=== PATIENT | female | born 1965 | race Caucasian/White ===

== ENCOUNTER 2017-04-15 18:15 | Emergency (ER) | payer BC ==
--- NOTE | 2017-04-15 18:59 | UC ---
Dizzy HPI HPI Summary: complaint of intermittent dizziness currently has fleas in the house sprayed her bedroom with flea spray on thursday -left the room for 3 hours-slept in the sheets at night when she woke up thursday morning felt dizzy when she sat up, layed down for a while yesterday felt slightly dizzy and intermittent headache relieved by ibuprofen today was fine until 1PM then when she moved her head dizziness started again denies N/V/D, chest pain, shortness of breath, diaphoreisis,no headache at this time - History Of Current Complaint Chief Complaint: UCDizziness Stated Complaint: dizziness Time Seen by Provider: 04/15/17 18:58 Hx Obtained From: Patient Hx Last Menstrual Period: oct 31 - Allergies/Home Medications Allergies/Adverse Reactions: Allergies Allergy/AdvReac Type Severity Reaction Status Date / Time Bee Venom Allergy Hives Verified 04/15/17 18:38 PMH/Surg Hx/FS Hx/Imm Hx Previously Healthy: Yes Psychological History: Depression - Surgical History Surgical History: Yes Surgery Procedure, Year, and Place: LAPROSCOPIC SURGERY ENDOMETRIOSIS 1993 - Family History Known Family History: Negative: Cardiac Disease, Hypertension, Diabetes - Social History Occupation: Employed Full-time Lives: With Family Alcohol Use: Occasionally Substance Use Type: None Smoking Status (MU): Never Smoked Tobacco Review of Systems Constitutional: Fatigue Skin: Negative Eyes: Negative ENT: Negative Respiratory: Negative Cardiovascular: Negative Gastrointestinal: Negative Genitourinary: Negative Motor: Negative Neurovascular: Negative Musculoskeletal: Negative Neurological: Headache All Other Systems Reviewed And Are Negative: Yes Physical Exam Triage Information Reviewed: Yes Appearance: No Pain Distress, Well-Nourished Vital Signs: Initial Vital Signs Temp 97.8 F 04/15/17 18:18 Pulse 64 04/15/17 18:18 Resp 18 04/15/17 18:18 BP 154/81 04/15/17 18:18 Pulse Ox 100 04/15/17 18:18 Vital Signs Reviewed: Yes Eyes: Positive: Conjunctiva Clear ENT: Positive: Pharynx normal, TMs normal Neck: Positive: Supple, No Lymphadenopathy Respiratory: Positive: Lungs clear, Normal breath sounds, No respiratory distress, No accessory muscle use Cardiovascular: Positive: RRR, No Murmur, Pulses Normal, Brisk Capillary Refill Abdomen Description: Positive: Nontender, Soft Bowel Sounds: Positive: Present Musculoskeletal: Positive: No Edema Neurological: Positive: Alert, Other: - CN [id number] normal , negative Romberg Psychological Exam: Normal Skin Exam: Normal Re-Evaluation - Re-Evaluation First Eval Change: Improved - less dizziness following meclizine Dizzy Course/Dx - Course Course Of Treatment: exam completed. no neuro defecits. posion control contacted- no indication for ingredients to be causing dizziness in patient. will give meclizine and followup with PCP - Differential Dx/Diagnosis Differential Diagnosis/HQI/PQRI: Benign Paroxysmal Positional Vertigo, Labyrinthitis, Meniere's Disease Provider Diagnoses: dizziness - Physician Notifications Discussed Patient Care With: Tray Keith Time Discussed With Above Provider: 19:35 Discharge - Discharge Plan Condition: Stable Disposition: HOME Prescriptions: Meclizine TAB* [Antivert 12.5 TAB*] 12.5 mg PO TID #6 tab Patient Education Materials: Vertigo (ED), Dizziness (ED) Referrals: Carol Junior NP [Primary Care Provider] - Additional Instructions: Please start medication as directed Increase fluids and rest Take acetaminophen or ibuprofen for fever or pain Please review your discharge instructions. If your symptoms do not improve please call your primary care provider or return to urgent care. If your symptoms worsen tonight please proceed to the emergency department for further evaluation
[2017-04-15] MEDS ORDERED: Meclizine TAB* 12.5 MG PO ONE (19:30)
[2017-04-15 20:25] VITALS: BP 169/81
== END 2017-04-15 20:06 | disposition home or self-care (01) ==
LOC: UCEAST 18:15
DX: R42 Dizziness and giddiness (principal); F32.9 Major depressive disorder, single episode, unspecified; Z91.030 Bee allergy status
CPT/HCPCS: 93005; 99212; A9270-GY; G0463

== ENCOUNTER → 2017-04-16 07:52 | Emergency (ER) | payer BC ==
[~2017-04-16 07:52] MED LIST: Diazepam SYRINGE* 5 MG/ML SYRINGE IV ONE; Diazepam TAB(*) 5 MG PO ONE; Ketorolac INJ* 30 MG/ML 1 ML VIAL IV PUSH ONE; Meclizine TAB* 12.5 MG PO ONE; NS 0.9% 1000 ML* 1,000 ML IV ONE
--- NOTE | 2017-04-16 08:33 | RAD ---
HISTORY: Dizziness COMPARISONS: None VIEWS:1: Single frontal portable view of the chest at 8:18 AM FINDINGS: LINES AND TUBES: None. CARDIOMEDIASTINAL SILHOUETTE: The cardiomediastinal silhouette is normal for portable technique. PLEURA: The costophrenic angles are sharp. No pleural abnormalities are noted. LUNG PARENCHYMA: The lungs are clear. ABDOMEN: The upper abdomen is clear. There is no subphrenic gas. BONES AND SOFT TISSUES: No bone or soft tissue abnormalities are noted. IMPRESSION: NO ACTIVE CARDIOPULMONARY DISEASE.
--- NOTE | 2017-04-16 08:51 | RAD ---
HISTORY: Dizziness COMPARISONS: None TECHNIQUE: Multiple contiguous axial CT scans were obtained of the head without intravenous contrast. FINDINGS: HEMORRHAGE/INFARCT: There is no hemorrhage or acute infarct. MASSES/SHIFT: There is no mass or shift. EXTRA-AXIAL SPACES: There are no extra-axial fluid collections. SULCI AND VENTRICLES: The sulci and ventricles are normal in size and position for the patient's stated age. CEREBRUM: There are no focal parenchymal abnormalities. BRAINSTEM: There are no focal parenchymal abnormalities. CEREBELLUM: There are no focal parenchymal abnormalities. VESSELS: The vessels are grossly normal. PARANASAL SINUSES: The paranasal sinuses are clear. ORBITS: The orbits are unremarkable. BONES AND SOFT TISSUE: No bone or soft tissue abnormalities are noted. OTHER: None IMPRESSION: NO ACUTE INTRACRANIAL PATHOLOGY.
[2017-04-16 09:03] LABS: Urine Bilirubin Negative (Negative); Urine Glucose Negative (Negative); Urine Nitrite Negative (Negative)
[2017-04-16 09:20] LABS: Benzodiazepine Urine Screen None Detected (None Detect)
[2017-04-16 09:23] LABS: Hematocrit 48 % (35-47); Hemoglobin 16.3 g/dl (12.0-16.0); Mean Corpuscular HGB Conc 34 g/dl (31-36); Mean Corpuscular Hemoglobin 29 pg (27-31); Mean Corpuscular Volume 87 fL (80-97); Mean Platelet Volume 8 um3 (7.4-10.4); Red Blood Count 5.53 10^6/ul (4.0-5.4); Red Cell Distribution Width 13 % (10.5-15)
[2017-04-16 09:36] LABS: ALT 14 U/L (7-52); AST 15 U/L (13-39); Albumin 4.3 g/dL (3.2-5.2); Alkaline Phosphatase 65 U/L (34-104); Anion Gap 6 mmol/L (2-11); BUN/Creatinine Ratio 12.4 (8-20); Blood Urea Nitrogen 11 mg/dL (6-24); CO2 Carbon Dioxide 31 mmol/L (22-32); Calcium 9.8 mg/dL (8.6-10.3); Chloride 102 mmol/L (101-111); Creatine Kinase 64 U/L (10-223); EGFR Non-African American 66.9 (>60); Glucose 74 mg/dL (70-100); Potassium 3.7 mmol/L (3.5-5.0); Sodium 139 mmol/L (133-145); Total Protein 7.3 g/dL (6.4-8.9)
[2017-04-16 09:53] LABS: Alcohol < 10 mg/dL (<10)
[2017-04-16 10:04] LABS: TSH (Thyroid Stimulating Horm) 0.74 mcIU/mL (0.34-5.60)
[2017-04-16 15:27] VITALS: BP 105/78
--- NOTE | 2017-04-16 18:53 | ED ---
Tiffany Whitley Thomas, scribed for Aubrey Montes De Oca MD on 04/16/17 at 0831 . Dizziness - HPI Summary HPI Summary: The pt is a 52 y/o F presenting to the ED c/o dizziness characterized as room- spinning that began three days ago. The dizziness is aggravated when she moves her head. The dizziness is alleviated by nothing. The patient was given Meclizine at urgent care yesterday for the dizziness which did not relieve symptoms. Pt additionally c/o unsteadiness on her feet, CARBAJAL (today and yesterday) , and blurred vision. Pt denies N/V, CP, SOB, palpitations, and any pains at this time. PMHx: previously healthy. PSHx: laparoscopic endometriosis surgery. SHx: occasional alcohol, no illicit drugs, no smoking. She denies having episodes of this dizziness in the past. She denies drinking alcohol recently. The patient has not had a URI in the last few weeks. - History Of Current Complaint Chief Complaint: EDDizziness Stated Complaint: DIZZY Time Seen by Provider: 04/16/17 08:00 Hx Obtained From: Patient Onset/Duration: Still Present - onset 3 days ago Timing: Constant Severity Initially: Moderate Character: Room Spinning Aggravating Factor(s): Position Change - of her head Alleviating Factor(s): Nothing Associated Signs And Symptoms: Positive: Other: - POS: CARBAJAL (today and yesterday) , blurred vision. Negative: Nausea, Vomiting, Chest Pain, SOB, Palpitations, Fever - Allergies/Home Medications Allergies/Adverse Reactions: Allergies Allergy/AdvReac Type Severity Reaction Status Date / Time Bee Venom Allergy Hives Verified 04/15/17 18:38 Home Medications: Home Medications Sertraline* [Zoloft*] 50 mg PO DAILY 04/16/17 [History Confirmed 04/16/17] PMH/Surg Hx/FS Hx/Imm Hx Previously Healthy: Yes Endocrine/Hematology History: Denies: Hx Diabetes, Hx Thyroid Disease Cardiovascular History: Denies: Hx Hypertension, Hx Pacemaker/ICD Respiratory History: Denies: Hx Asthma, Hx Chronic Obstructive Pulmonary Disease (COPD) GI History: Denies: Hx Ulcer History: Denies: Hx Renal Disease Sensory History: Denies: Hx Hearing Aid Psychiatric History: Denies: Hx Panic Disorder - Cancer History Hx Chemotherapy: No Hx Radiation Therapy: No - Surgical History Surgery Procedure, Year, and Place: LAPROSCOPIC SURGERY ENDOMETRIOSIS 1993 Infectious Disease History: Denies: Hx Clostridium Difficile, Hx Hepatitis, Hx Human Immunodeficiency Virus (HIV), Hx of Known/Suspected MRSA, Hx Shingles, Hx Tuberculosis, Hx Known/ Suspected VRE, Hx Known/Suspected VRSA, History Other Infectious Disease, Traveled Outside the [place] in Last 30 Days - Family History Known Family History: Negative: Cardiac Disease, Hypertension, Diabetes - Social History Alcohol Use: Occasionally Substance Use Type: Reports: None Smoking Status (MU): Never Smoked Tobacco Review of Systems Negative: Fever Negative: Palpitations, Chest Pain Negative: Shortness Of Breath Negative: Vomiting, Nausea Neurological: Other - POS: dizziness (room spinning, onset 3 days ago, aggravated by moving her head) All Other Systems Reviewed And Are Negative: Yes Physical Exam - Summary Physical Exam Summary: VITAL SIGNS: Reviewed. GENERAL: ~Patient is a well-developed and nourished female who is lying comfortable in the stretcher. ~Patient is not in any acute respiratory distress. HEAD AND FACE: No signs of trauma. ~No ecchymosis, hematomas or skull depressions. No sinus tenderness. EYES: PERRLA, EOMI x 2, No injected conjunctiva, no nystagmus. EARS: Hearing grossly intact. Ear canals and tympanic membranes are within normal limits. MOUTH: Oropharynx within normal limits. NECK: Supple, trachea is midline, no adenopathy, no JVD, no carotid bruit, no c- spine tenderness, neck with full ROM. CHEST: Symmetric, no tenderness at palpation LUNGS: Clear to auscultation bilaterally. No wheezing or crackles. CVS: Regular rate and rhythm, S1 and S2 present, no murmurs or gallops appreciated. ABDOMEN: Soft, non-tender. No signs of distention. No rebound no guarding, and no masses palpated. Bowel sounds are normal. EXTREMITIES: FROM in all major joints, no edema, no cyanosis or clubbing. NEURO: Alert and oriented x 3. No acute neurological deficits. Speech is normal and follows commands. SKIN: Dry and warm Triage Information Reviewed: Yes Vital Signs On Initial Exam: Initial Vitals Temp Pulse Resp BP Pulse Ox 97 F 68 17 151/96 100 04/16/17 07:54 04/16/17 07:54 04/16/17 07:54 04/16/17 07:54 04/16/17 07:54 Vital Signs Reviewed: Yes Diagnostics - Vital Signs Vital Signs Temp Pulse Resp BP Pulse Ox 04/16/17 07:54 97 F 68 17 151/96 100 - Laboratory Lab Results: Lab Results 04/16/17 04/16/17 04/16/17 Range/Units 08:48 08:48 09:00 WBC 5.0 (3.5-10.8) 10^3/ul RBC 5.53 H (4.0-5.4) 10^6/ul Hgb 16.3 H (12.0-16.0) g/dl Hct 48 H (35-47) % MCV 87 (80-97) fL MCH 29 (27-31) pg MCHC 34 (31-36) g/dl RDW 13 (10.5-15) % Plt Count 221 (150-450) 10^3/ul MPV 8 (7.4-10.4) um3 Neut % (Auto) 62.1 (38-83) % Lymph % (Auto) 26.3 (25-47) % Hernando % (Auto) 8.4 (1-9) % Eos % (Auto) 2.2 (0-6) % Baso % (Auto) 1.0 (0-2) % Absolute Neuts (auto) 3.1 (1.5-7.7) 10^3/ul Absolute Lymphs (auto) 1.3 (1.0-4.8) 10^3/ul Absolute Monos (auto) 0.4 (0-0.8) 10^3/ul Absolute Eos (auto) 0.1 (0-0.6) 10^3/ul Absolute Basos (auto) 0 (0-0.2) 10^3/ul Absolute Nucleated RBC 0.01 10^3/ul Nucleated RBC % 0.1 Sodium (133-145) mmol/L Potassium (3.5-5.0) mmol/L Chloride (101-111) mmol/L Carbon Dioxide (22-32) mmol/L Anion Gap (2-11) mmol/L BUN (6-24) mg/dL Creatinine (0.51-0.95) mg/dL Est GFR ( Amer) (>60) Est GFR (Non-Af Amer) (>60) BUN/Creatinine Ratio (8-20) Glucose (70-100) mg/dL Lactic Acid (0.5-2.0) mmol/L Calcium (8.6-10.3) mg/dL Magnesium (1.9-2.7) mg/dL Total Bilirubin (0.2-1.0) mg/dL AST (13-39) U/L ALT (7-52) U/L Alkaline Phosphatase (34-104) U/L Total Creatine Kinase (10-223) U/L Troponin I (<0.04) ng/mL Total Protein (6.4-8.9) g/dL Albumin (3.2-5.2) g/dL Globulin (2-4) g/dL Albumin/Globulin Ratio (1-3) TSH (0.34-5.60) mcIU/mL Urine Color Straw Urine Appearance Clear Urine pH 6.0 (5-9) Ur Specific [place] 1.003 L (1.010-1.030) Urine Protein Negative (Negative) Urine Ketones Negative (Negative) Urine Blood Negative (Negative) Urine Nitrate Negative (Negative) Urine Bilirubin Negative (Negative) Urine Urobilinogen Negative (Negative) Ur Leukocyte Esterase Negative (Negative) Urine Glucose Negative (Negative) Urine Opiates Screen None detected (None Detect) Ur Barbiturates Screen None detected (None Detect) Ur Phencyclidine Scrn None detected (None Detect) Ur Amphetamines Screen None detected (None Detect) U Benzodiazepines Scrn None detected (None Detect) Urine Cocaine Screen None detected (None Detect) U Cannabinoids Screen None detected (None Detect) Serum Alcohol (<10) mg/dL 04/16/17 04/16/17 Range/Units 09:00 09:00 WBC (3.5-10.8) 10^3/ul RBC (4.0-5.4) 10^6/ul Hgb (12.0-16.0) g/dl Hct (35-47) % MCV (80-97) fL MCH (27-31) pg MCHC (31-36) g/dl RDW (10.5-15) % Plt Count (150-450) 10^3/ul MPV (7.4-10.4) um3 Neut % (Auto) (38-83) % Lymph % (Auto) (25-47) % Hernando % (Auto) (1-9) % Eos % (Auto) (0-6) % Baso % (Auto) (0-2) % Absolute Neuts (auto) (1.5-7.7) 10^3/ul Absolute Lymphs (auto) (1.0-4.8) 10^3/ul Absolute Monos (auto) (0-0.8) 10^3/ul Absolute Eos (auto) (0-0.6) 10^3/ul Absolute Basos (auto) (0-0.2) 10^3/ul Absolute Nucleated RBC 10^3/ul Nucleated RBC % Sodium 139 (133-145) mmol/L Potassium 3.7 (3.5-5.0) mmol/L Chloride 102 (101-111) mmol/L Carbon Dioxide 31 (22-32) mmol/L Anion Gap 6 (2-11) mmol/L BUN 11 (6-24) mg/dL Creatinine 0.89 (0.51-0.95) mg/dL Est GFR ( Amer) 86.0 (>60) Est GFR (Non-Af Amer) 66.9 (>60) BUN/Creatinine Ratio 12.4 (8-20) Glucose 74 (70-100) mg/dL Lactic Acid 1.1 (0.5-2.0) mmol/L Calcium 9.8 (8.6-10.3) mg/dL Magnesium 2.0 (1.9-2.7) mg/dL Total Bilirubin 0.60 (0.2-1.0) mg/dL AST 15 (13-39) U/L ALT 14 (7-52) U/L Alkaline Phosphatase 65 (34-104) U/L Total Creatine Kinase 64 (10-223) U/L Troponin I 0.00 (<0.04) ng/mL Total Protein 7.3 (6.4-8.9) g/dL Albumin 4.3 (3.2-5.2) g/dL Globulin 3.0 (2-4) g/dL Albumin/Globulin Ratio 1.4 (1-3) TSH 0.74 (0.34-5.60) mcIU/mL Urine Color Urine Appearance Urine pH (5-9) Ur Specific [place] (1.010-1.030) Urine Protein (Negative) Urine Ketones (Negative) Urine Blood (Negative) Urine Nitrate (Negative) Urine Bilirubin (Negative) Urine Urobilinogen (Negative) Ur Leukocyte Esterase (Negative) Urine Glucose (Negative) Urine Opiates Screen (None Detect) Ur Barbiturates Screen (None Detect) Ur Phencyclidine Scrn (None Detect) Ur Amphetamines Screen (None Detect) U Benzodiazepines Scrn (None Detect) Urine Cocaine Screen (None Detect) U Cannabinoids Screen (None Detect) Serum Alcohol < 10 (<10) mg/dL Result Diagrams: 04/16/17 09:00 04/16/17 09:00 Lab Statement: Any lab studies that have been ordered have been reviewed, and results considered in the medical decision making process. - Radiology CXR Xray Interpretation: No Acute Changes - no active cardiopulmonary disease Radiology Interpretation Completed By: Radiologist - CT CT Brain CT Interpretation: No Acute Changes CT Interpretation Completed By: Radiologist - EKG 08:20 Cardiac Rate: NL - 68 BPM EKG Interpretation: Sinus rhythm with no ST elevations Dizzy Course/Dx - Course Assessment/Plan: The pt is a 52 y/o F presenting to the ED c/o dizziness characterized as room-spinning that began three days ago. The dizziness is aggravated when she moves her head. The dizziness is alleviated by nothing. The patient was given Meclizine at urgent care yesterday for the dizziness which did not relieve symptoms. Pt additionally c/o unsteadiness on her feet, CARBAJAL ( today and yesterday), and blurred vision. Pt denies N/V, CP, SOB, palpitations, and any pains at this time. PMHx: previously healthy. PSHx: laparoscopic endometriosis surgery. SHx: occasional alcohol, no illicit drugs, no smoking. She denies having episodes of this dizziness in the past. She denies drinking alcohol recently. The patient has not had a URI in the last few weeks. After the patient was accepted for admission to Dr. Bautista, Dr. Bautista reported that he did a couple apply maneuvers to relief of symptoms. Dr. Bautista reports that the patient can be discharged home with follow up by her PCP. The patient is agreeable for discharge. At this point I discussed all the findings and test results with the patient and patients parents. They were instructed to return to the emergency room immediately if any of the symptoms return or worsens. They understand and agree. Neurological exam before discharge: Patient is alert and oriented x 3. No acute neurological deficits. Patient vital signs are stable. Patient is to follow up with the list of first job ideas in the next 2 3 days. They understand and agree. Plan of care was discussed with the patient and patient understands and agrees with the plan of care. All questions were answered at patient satisfaction. There were no further complaints or concerns. - Diagnoses Differential Diagnosis/HQI/PQRI: Benign Paroxysmal Positional Vertigo, CVA, Labyrinthitis, Meniere's Disease, Transient Ischemic Attack Provider Diagnoses: Benign positional vertigo - Provider Notifications Discussed Care Of Patient With: Chris Bautista Time Discussed With Above Provider: 12:46 Instructed by Provider To: Other - He initially agreed to accept the patient for admission, but after performing the Apply maneuver, we will discharge the patient. Discharge - Discharge Plan Condition: Stable Disposition: HOME Patient Education Materials: Benign Paroxysmal Positional Vertigo (ED) Referrals: Carol Junior NP [Primary Care Provider] - 3 Days The documentation as recorded by the Tiffany prieto Thomas accurately reflects the service I personally performed and the decisions made by Tavon ramon Walter, MD.
--- NOTE | 2017-04-16 20:27 | CONS ---
CC: Carol Junior NP * CONSULTATION REPORT: DATE OF CONSULT: 04/16/17 - EMERGENCY DEPT PRIMARY CARE PROVIDER: Carol Junior NP. HEALTHCARE PROXY: . CODE STATUS: Full. SERVICE REQUESTING CONSULTATION: Emergency Room, Dr. Montes De Oca. REASON FOR CONSULTATION: Vertigo. SOURCE OF INFORMATION: History obtained from interview with the patient and her , [place] [facility] [place] discussion with Dr. Montes De Oca. RELIABILITY: Very good. HISTORY OF PRESENT ILLNESS: This is a 52-year-old woman generally very healthy , past medical history of hyperlipidemia and depression, but in usual state of health on Thursday 5 days prior to presentation; however, on Thursday 4 days prior to presentation, sprayed her bedroom with flea spray. They slept outside of the room; however, forgot to change the sheets and slept on the sheets on the day prior. Three days prior to presentation, woke up feeling dizzy, described as spinning "like drinking too much." She noted her gait was steady, was not falling to one side or the other. She got up and throughout the day she made the coffee and drank it because she was having some headache as well as cleaned the room, did some laundry to care for kids. For her headache, she took Motrin and noted that the dizziness described as spinning lasted all day that came and went. She noted that it was worse when she lied down and turned her head to the right; however, was okay when looking ti the left. She lives with her 2 children. There has been no recent illnesses in home including no sore throat, cough, runny nose, rhinorrhea. No ringing in her ears or difficulty hearing. She has noted the headache has persisted today, bilateral throbbing with no associated nausea, vomiting, photo or phono sensitivity. She has had headaches more often recently in the setting of her premenopausal state , usually relieved with caffeine and Motrin. She has never been diagnosed with migraines in the past. The patient proceeded to urgent care the day prior to [place] [facility] [place] of these [place]iginous symptoms, was given meclizine with improvement in her vertiginous symptoms at home. She [place] [facility] [place] because of continuation of symptoms. PAST MEDICAL HISTORY: Depression and hyperlipidemia. MEDICATIONS: 1. Zoloft 50 mg daily. 2. Calcium. 3. Motrin p.r.n. 4. Multivitamin daily. ALLERGIES: No known drug allergies. FAMILY HISTORY: Mother with hypertension. Father with hyperlipidemia. Normal family history. SOCIAL HISTORY: No tobacco. Drinks 1 or 2 drinks per day. No illicits. 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 REVIEW OF SYSTEMS: As per HPI including dizziness, headache, otherwise all other systems negative. PHYSICAL EXAM: Vitals: In the emergency room, blood pressure 123/73, heart rate is between 57 and 74, 99% on room air, T-max 98.1. General: This patient is interactive, pleasant, in no apparent distress. HEENT: Oropharynx is clear. She has moist mucous membranes. Sclerae anicteric. Neck: She has non- elevated JVD. No cervical or supraclavicular lymphadenopathy. Heart: She has a regular rate and rhythm. Lungs: Clear to auscultation. Abdomen: Soft, nontender, and nondistended. Extremities: Warm and well perfused without clubbing, cyanosis, or edema. Neurologic: She is alert and oriented x3. Her cranial nerves II through XII are intact. She has 5/5 strength throughout. Sensation to light touch is intact throughout. Negative Romberg. No drift. [id number] is intact. Laura-Hallpike elicited dizziness bilateral sides and did not elicit nystagmus. DIAGNOSTIC STUDIES/LAB DATA: Brain CT, no acute intracranial pathology. Chest x- ray, no acute cardiopulmonary disease. EKG, normal sinus rhythm, ventricular rate of 68, normal limit axis and interval. Good R-wave progression. No ST or T-wave changes. ASSESSMENT AND PLAN: This is a 52-year-old female with past medical history of depression, untreated hyperlipidemia, presenting to the hospital with intermittent vertigo, worse with lying down, looking to the right, consistent with benign paroxysmal positional vertigo. Doubt cerebrovascular accident, transient ischemic attack, Meniere's, or labyrinthitis and absence of nausea and vomiting. No other neurological symptoms. Benign paroxysmal positional vertigo, most likely diagnosis upon Jovanny maneuver , targeting posterior otolith on the right; however, was unsuccessful on 2 attempts. Note that it was difficult to perform the maneuver in the emergency room on the stretcher, limiting ability to lie back and turn. I did discuss the modified Jovanny with the patient and her as well as the Amezcua- Daroff exercises. They feel comfortable returning home and continuing the modified Jovanny as well as the Amezcua- Daroff exercises for treatment. Encourage continued meclizine. They discussed the possibility of vertiginous migraine in the setting of headaches and treatment of the migraine with Tylenol , Motrin as well as caffeine. I discussed extensive return to the emergency room instructions including persistent or worsening symptoms in addition of nausea and vomiting, changes in hearing or vision, any weakness, paresthesias, loss of consciousness, slurred speech for which the patient would return to hospital immediately. The patient and are in agreement. I discussed findings with Dr. Montes De Oca. TIME SPENT: Greater than 60 minutes were spent on the consultation of this patient, of which greater than half was spent [id number] with the patient. [id number]/[facility] #: [id number] SHELLI
== END | disposition home or self-care (01) ==
LOC: ED 07:52
DX: H81.10 Benign paroxysmal vertigo, unspecified ear (principal)
CPT/HCPCS: 36415; 70450; 71010; 80053; 80307; 80320; 81003; 82550; 83605; 83735; 84443; 84484; 85025; 93005; 96374; 99284; A9270-GY; G0480; J1885; J3360

== ENCOUNTER 2017-10-11 09:42 | Emergency (ER) | payer BC ==
[2017-10-11 12:16] VITALS: BP 108/62
--- NOTE | 2017-10-11 12:20 | UC ---
Respiratory Complaint HPI - HPI Summary HPI Summary: 52 yo female with fever/chills/myalgias/runny nose x 1 1/2 days son with flu no n/v/d - History of Current Complaint Chief Complaint: UCGeneralIllness Stated Complaint: CHEST CONGESTION, AND FEVER Time Seen by Provider: 10/11/17 12:05 Hx Obtained From: Patient Hx Last Menstrual Period: oct 31 Onset/Duration: Sudden Onset, Lasting Days Severity Initially: Mild Severity Currently: Moderate Pain Intensity: 4 Pain Scale Used: 0-10 Numeric Character: Cough: Nonproductive Aggravating Factors: Nothing Alleviating Factors: Nothing Associated Signs And Symptoms: Positive: Fever, Chills, Nasal Congestion, Sinus Discomfort - Allergies/Home Medications Allergies/Adverse Reactions: Allergies Allergy/AdvReac Type Severity Reaction Status Date / Time MS Bee Venom [Bee Venom] Allergy Hives Verified 10/11/17 11:15 PMH/Surg Hx/FS Hx/Imm Hx Previously Healthy: Yes - Surgical History Surgical History: Yes Surgery Procedure, Year, and Place: LAPROSCOPIC SURGERY ENDOMETRIOSIS 1993 - Family History Known Family History: Negative: Cardiac Disease, Hypertension, Diabetes - Social History Alcohol Use: Occasionally Substance Use Type: None Smoking Status (MU): Never Smoked Tobacco Review of Systems Constitutional: Fever, Chills, Fatigue Skin: Negative Eyes: Negative ENT: Nasal Discharge Respiratory: Cough Cardiovascular: Negative Gastrointestinal: Negative Genitourinary: Negative Motor: Negative Neurovascular: Negative Musculoskeletal: Myalgia Neurological: Negative Psychological: Negative Is Patient Immunocompromised?: No All Other Systems Reviewed And Are Negative: Yes Physical Exam Triage Information Reviewed: Yes Appearance: Well-Appearing, No Pain Distress, Well-Nourished Vital Signs: Initial Vital Signs Temp 98.5 F 10/11/17 11:10 Pulse 89 10/11/17 11:10 Resp 18 10/11/17 11:10 BP 94/67 10/11/17 11:10 Pulse Ox 98 10/11/17 11:10 Vital Signs Reviewed: Yes Eyes: Positive: Conjunctiva Clear ENT: Positive: Hearing grossly normal, Pharyngeal erythema, Nasal congestion, Nasal drainage, Uvula midline. Negative: Tonsillar swelling, Tonsillar exudate , Muffled voice Neck: Positive: Supple, Nontender, No Lymphadenopathy Respiratory: Positive: Lungs clear, Normal breath sounds, No respiratory distress, No accessory muscle use Cardiovascular: Positive: RRR, No Murmur Musculoskeletal: Positive: ROM Intact, No Edema Neurological: Positive: Alert Psychological Exam: Normal Skin Exam: Normal UC Diagnostic Evaluation - Laboratory Pertinent Lab Values Are: WNL Except: - flu B (+) O2 Sat by Pulse Oximetry: 98 - normal/not hypoxic Respiratory Course/Dx - Differential Dx/Diagnosis Provider Diagnoses: influenza Discharge - Discharge Plan Condition: Stable Disposition: HOME Prescriptions: Oseltamivir CAP* [Tamiflu CAP*] 75 mg PO BID #10 cap Patient Education Materials: Influenza (ED) Referrals: Patricia Villalta MD [Primary Care Provider] -
== END 2017-10-11 12:22 | disposition home or self-care (01) ==
LOC: UCEAST 09:42
DX: J11.1 Influenza due to unidentified influenza virus with other respiratory manifestations (principal); Z91.030 Bee allergy status
CPT/HCPCS: 87502; 99212; G0463

== ENCOUNTER 2018-11-28 08:46 | Emergency (ER) | payer BC ==
[2018-11-28 09:00] VITALS: BP 104/76
--- NOTE | 2018-11-28 09:08 | UC ---
Throat Pain/Nasal [place]yler HPI - HPI Summary HPI Summary: 53-year-old woman comes in with chief complaint of upper respiratory tract infection symptoms for 6 days. The sore throat runny nose cough chest congestion. She's had fevers. [id number] medications help with her symptoms. No wheezing. Rhinorrhea is yellow. - History of Current Complaint Chief Complaint: UCRespiratory Stated Complaint: URI,COUGH Time Seen by Provider: 11/28/18 08:52 Hx Last Menstrual Period: 1 yr ago Pain Intensity: 0 - Allergies/Home Medications Allergies/Adverse Reactions: Allergies Allergy/AdvReac Type Severity Reaction Status Date / Time bee venom protein (honey bee) Allergy Unknown Verified 03/26/18 13:43 Reaction Details PMH/Surg Hx/FS Hx/Imm Hx Previously Healthy: Yes - Surgical History Surgical History: Yes Surgery Procedure, Year, and Place: LAPROSCOPIC SURGERY ENDOMETRIOSIS 1993 - Family History Known Family History: Negative: Cardiac Disease, Hypertension, Diabetes - Social History Alcohol Use: Daily Substance Use Type: None Smoking Status (MU): Never Smoked Tobacco Review of Systems All Other Systems Reviewed And Are Negative: Yes Constitutional: Positive: Fever Skin: Positive: Negative Eyes: Positive: Negative ENT: Positive: Sore Throat, Nasal Discharge, Sinus Congestion Respiratory: Positive: Cough Cardiovascular: Positive: Negative Gastrointestinal: Positive: Negative Neurovascular: Positive: Negative Musculoskeletal: Positive: Negative Neurological: Positive: Negative Psychological: Positive: Negative Is Patient Immunocompromised?: No Physical Exam Triage Information Reviewed: Yes Appearance: No Pain Distress, Well-Nourished, Ill-Appearing - MILD Vital Signs: Initial Vital Signs Temp 98.4 F 11/28/18 08:53 Pulse 80 11/28/18 08:53 Resp 16 11/28/18 08:53 BP 104/76 11/28/18 08:53 Pulse Ox 98 11/28/18 08:53 Vital Signs Reviewed: Yes Eye Exam: Normal Eyes: Positive: Conjunctiva Clear ENT: Positive: Pharyngeal erythema, Nasal congestion, Nasal drainage, TMs normal Neck exam: Normal Neck: Positive: Supple Respiratory: Positive: Lungs clear, Normal breath sounds, No respiratory distress Cardiovascular: Positive: RRR Musculoskeletal Exam: Normal Musculoskeletal: Positive: Strength Intact, ROM Intact Neurological Exam: Normal Neurological: Positive: Alert, Muscle Tone Normal Psychological Exam: Normal Psychological: Positive: Age Appropriate Behavior Skin Exam: Normal Throat Pain/Nasal Course/Dx - Course Course Of Treatment: DISCUSSED VIRAL VERSES BACTERIAL INFECTION AND THE ROLE OF ANTIBIOTICS. THE PATIENT WISHES TO BE ON ANTIBIOTICS AT THIS TIME. - Differential Dx/Diagnosis Provider Diagnosis: Upper respiratory infection Discharge - Sign-Out/Discharge Documenting (check all that apply): Patient Departure All imaging exams completed and their final reports reviewed: No Studies - Discharge Plan Condition: Stable Disposition: HOME Prescriptions: Azithromyxin [place] (NF) [Z-Madison (Zithromax) 250 mg tabs #6] 2 tab PO .TODAY, THEN 1 DAILY #6 tab Patient Education Materials: Upper Respiratory Infection (ED) Referrals: Carol Junior NP [Primary Care Provider] - Additional Instructions: FOLLOW UP WITH YOUR DOCTOR IF NOT COMPLETELY IMPROVED. GET RECHECKED FOR ANY WORSENING OF YOUR CONDITION OR QUESTIONS OR CONCERNS. - Billing Disposition and Condition Condition: STABLE Disposition: Home
== END 2018-11-28 09:12 | disposition home or self-care (01) ==
LOC: UCEAST 08:46
DX: J06.9 Acute upper respiratory infection, unspecified (principal); Z91.030 Bee allergy status
CPT/HCPCS: 99212; G0463

== ENCOUNTER 2019-08-27 11:50 | Emergency (ER) | payer BC ==
[2019-08-27 12:05] VITALS: BP 124/73
--- NOTE | 2019-08-27 12:16 | UC ---
Throat Pain/Nasal [place] HPI - HPI Summary HPI Summary: has had cold symps over past 4-5 days, has only taken ibuprofen so far. last night started having more sinus pain and this am pressure extends into ears - History of Current Complaint Chief Complaint: UCRespiratory Stated Complaint: SINUS ISSUE COUGH Time Seen by Provider: 08/27/19 12:00 Hx Obtained From: Patient Hx Last Menstrual Period: a year Onset/Duration: Gradual Onset Severity: Moderate Pain Intensity: 4 Cough: None Associated Signs & Symptoms: Positive: Sinus Discomfort - Allergies/Home Medications Allergies/Adverse Reactions: Allergies Allergy/AdvReac Type Severity Reaction Status Date / Time bee venom protein (honey bee) Allergy Unknown Verified 08/27/19 12:05 Reaction Details Home Medications: Home Medications Ibuprofen TAB* [Advil TAB*] 400 mg PO Q6H PRN 08/27/19 [History Confirmed ] PMH/Surg Hx/FS Hx/Imm Hx Previously Healthy: Yes Psychological History: Depression - Surgical History Surgical History: Yes Surgery Procedure, Year, and Place: LAPROSCOPIC SURGERY ENDOMETRIOSIS 1993 - Family History Known Family History: Negative: Cardiac Disease, Hypertension, Diabetes - Social History Occupation: Employed Full-time Lives: With Family Alcohol Use: Daily Alcohol Amount: 1 beer Substance Use Type: None Smoking Status (MU): Never Smoked Tobacco Review of Systems All Other Systems Reviewed And Are Negative: Yes Skin: Positive: Negative ENT: Positive: Ear Ache, Sinus Congestion, Sinus Pain/Tenderness Respiratory: Positive: Negative Cardiovascular: Positive: Negative Neurological: Positive: Negative Psychological: Positive: Negative Is Patient Immunocompromised?: No Physical Exam Triage Information Reviewed: Yes Appearance: Well-Appearing, No Pain Distress, Well-Nourished Vital Signs: Initial Vital Signs Temp 97.5 F 08/27/19 11:59 Pulse 54 08/27/19 11:59 Resp 16 08/27/19 11:59 BP 124/73 08/27/19 11:59 Pulse Ox 97 08/27/19 11:59 Vital Signs Reviewed: Yes Eyes: Positive: Conjunctiva Clear ENT: Positive: Nasal congestion, TM dull, Sinus tenderness - maxillary, Other - thick white PND Neck exam: Normal Neck: Positive: No Lymphadenopathy Respiratory Exam: Normal Respiratory: Positive: Lungs clear Cardiovascular Exam: Normal Neurological Exam: Normal Psychological Exam: Normal Skin Exam: Normal Skin: Negative: Rashes Throat Pain/Nasal Course/Dx - Differential Dx/Diagnosis Differential Diagnosis/HQI/PQRI: Influenza, Pharyngitis, Tonsillitis, URI Provider Diagnosis: Sinusitis Discharge ED - Sign-Out/Discharge Documenting (check all that apply): Patient Departure All imaging exams completed and their final reports reviewed: No Studies - Discharge Plan Condition: Good Disposition: HOME Prescriptions: Azithromyxin [place] (NF) [Z-Madison (Zithromax) 250 mg tabs #6] 2 tab PO .TODAY, THEN 1 DAILY #6 tab Patient Education Materials: Sinusitis (ED) Referrals: Carol Junior NP [Primary Care Provider] - 3 Days (if no better) Additional Instructions: drink plenty of fluids and rest start zithromax and take as directed try DayQuil/NyQuil for symptom relief or sudafed from behind the counter - Billing Disposition and Condition Condition: GOOD Disposition: Home
== END 2019-08-27 12:27 | disposition home or self-care (01) ==
LOC: UCEAST 11:50
DX: J32.9 Chronic sinusitis, unspecified (principal); H92.09 Otalgia, unspecified ear; Z91.030 Bee allergy status
CPT/HCPCS: 99212; G0463